=== PATIENT | male | born 1935 | race Hispanic/Latino ===

== ENCOUNTER 2019-05-10 07:47 | Day surgery (SDC) | payer MEDICARE ==
[2019-05-10] MEDS ORDERED: ECOTRIN PO ONE (09:00)
[2019-05-10] MEDS ORDERED: NACL 0.9% 500 ML 500 ML IV SCH (09:00)
[2019-05-10 09:03] LABS: Basophils # (Auto) 0.1 K/mm3 (0.0-0.1); Eosinophils # (Auto) 0.2 K/mm3 (0.0-0.4); Eosinophils % (Auto) 3.8 % (0.0-4.3); Hematocrit 43.9 % (35.5-45.6); Hemoglobin 15.3 gm/dl (11.8-15.2); Lymphocytes # (Auto) 1.3 K/mm3 (1.2-5.4); Lymphocytes % (Auto) 23.3 % (13.4-35.0); Mean Corpuscular HGB Conc 35 % (32-34); Mean Corpuscular Volume 90 fl (84-94); Monocytes # (Auto) 0.5 K/mm3 (0.0-0.8); Platelet Count 178 K/mm3 (140-440); Red Blood Count 4.86 M/mm3 (3.65-5.03); Red Cell Distribution Width 13.4 % (13.2-15.2)
[2019-05-10 09:38] LABS: INR 1.17 (0.87-1.13)
[2019-05-10 09:57] LABS: BUN/Creatinine Ratio 26; Blood Urea Nitrogen 23 mg/dL (9-20); Calcium 9.3 mg/dL (8.4-10.2); Hemolysis Index 13
[2019-05-10] MEDS ORDERED: HEPARIN/NS 5000 UNIT/500ML(CATH LAB) 1,000 ML IR ONE (10:25)
[2019-05-10] MEDS ORDERED: VERSED ONE (10:25)
[2019-05-10] MEDS ORDERED: SUBLIMAZE ONE (10:25)
[2019-05-10] MEDS ORDERED: CALAN ONE (10:25)
[2019-05-10] MEDS ORDERED: HEPARIN 10,000 UNITS/10 ML ONE (10:25)
[2019-05-10] MEDS ORDERED: NITROGLYCERIN SYRINGE 3 ML ONE (10:26)
[2019-05-10] MEDS ORDERED: XYLOCAINE 2% INFILTRATI ONE (10:26)
--- NOTE | 2019-05-10 11:56 | Short Stay Summary ---
Short Stay Documentation Date of service: 05/10/19 - History H&P: obtained from office - Allergies and Medications Current Medications: Allergies No Known Allergies Allergy (Unverified 05/10/19 07:48) Home Medications Medication Instructions Recorded Confirmed Last Taken Type Aspirin EC [Halfprin EC] 81 mg PO BID 05/10/19 05/10/19 05/09/19 History 81mg Lisinopril [Zestril TAB] 10 mg PO DAILY 05/10/19 05/10/19 05/09/19 History 10mg Metoprolol [Lopressor TAB] 50 mg PO BID 05/10/19 05/10/19 05/09/19 History 50mg Active Medications Sodium Chloride (Nacl 0.9% 500 Ml) 500 mls @ 50 mls/hr IV DIRECT SATHISH Stop: 05/10/19 18:59 Last Admin: 05/10/19 10:14 Dose: 50 mls/hr Documented by: - Brief post op/procedure progress note Date of procedure: 05/10/19 Pre-op diagnosis: abnormal stress test Post-op diagnosis: same Procedure: [facility] - see dictated cath report Anesthesia: local Estimated blood loss: none Condition: stable - Disposition Condition at discharge: Good Disposition: [id number] TO HOME OR SELFCARE - Discharge Diagnoses (1) Abnormal stress test Status: Chronic (2) History of cardiomyopathy Status: Chronic (3) Chronic atrial fibrillation Status: Chronic (4) Sleep apnea Status: Chronic (5) HTN (hypertension) Status: Chronic (6) Hyperlipidemia Status: Chronic (7) PVD (peripheral vascular disease) Status: Chronic Short Stay Discharge Plan Activity: advance as tolerated Wound: open to air, keep clean and dry, per your surgeon's advice Follow up with: PRIMARY MD JUSTINA [Primary Care Provider] - 7 Days ELICEO BENAVIDEZ MD [Staff Physician] - 7 Days Forms: CardCath PCI D/C Instructions Prescriptions: Clopidogrel [Plavix] 75 mg PO QDAY #90 tablet
[2019-05-10 13:22] VITALS: BP 123/81
--- NOTE | 2019-05-10 14:03 | Cardiac Catherization Report ---
LEFT HEART CATHETERIZATION ORDERING PHYSICIAN: Cassie Damian MD CLINICAL INFORMATION: An 83-year-old gentleman with pacemaker, has a history of atrial fibrillation, not on oral anticoagulation secondary to fall, has hypertension, hyperlipidemia, peripheral vascular disease, here for abnormal stress. Procedure was done with moderate sedation. Total sedation time was 15 minutes, started at 10:52 a.m., finished at 11:07 a.m. Procedure was done via the right radial artery, sterile technique, local anesthesia, 6-Syriac radial sheath inserted. LV gram done in AMHARIC and DENTON view shows an EF of 50-55%. LVEDP 18 mmHg, LV is 120. Aortic is 118/73, no gradient across the aortic valve on pullback. Left system, JR4 catheter, large dominant vessel that is ectatic proximally and distally, and PDA, PLV are medium caliber vessels that are patent. Left system, JL3.5 catheter, left main is large and patent, bifurcates into large LAD, is patent with mild luminal irregularities. Diagonal 1 is of medium caliber with mild luminal irregularities. Circumflex is a large caliber vessel, patent, goes to a medium caliber OM1, OM2 that are patent with mild luminal irregularities. A 5-Syriac catheter ____ 6-Syriac radial sheath was discontinued. Radial band applied. No hematoma, no bleeding. SUMMARY: Left main patent, LAD patent, diagonal 1 patent, circumflex patent, OM1 and OM2 patent with mild luminal irregularities. RCA is large dominant with ectatic vessel, but patent, and normal LV function. Continue medical management and discussed this with the patient and the patient's family. JOB# [id number] ERICKSON/KIAN
== END 2019-05-10 13:54 | disposition home or self-care (01) ==
LOC: CATHLABREC 07:47
PROVIDERS: ATTEND Internal Medicine
DX: R94.39 Abnormal result of other cardiovascular function study (principal); I42.9 Cardiomyopathy, unspecified; I48.2 Chronic atrial fibrillation; G47.30 Sleep apnea, unspecified; I10 Essential (primary) hypertension; I73.9 Peripheral vascular disease, unspecified; E78.5 Hyperlipidemia, unspecified; Z79.82 Long term (current) use of aspirin; Z79.899 Other long term (current) drug therapy; Z87.891 Personal history of nicotine dependence; Z86.79 Personal history of other diseases of the circulatory system; Z95.0 Presence of cardiac pacemaker; Z80.8 Family history of malignant neoplasm of other organs or systems
CPT/HCPCS: 36415; 80048; 85025; 85610; 85730; 93005; 93010; 93458; 99156; C1769; C1894; J1644; J2250; J3010; J7040; Q9967